=== PATIENT | male | born 1990 | race Caucasian/White ===

== ENCOUNTER 2022-02-17 12:11 | Emergency (ER) | payer MEDICAID ==
[2022-02-17] MEDS ORDERED: Ketorolac 30 MG/ML SDV IVPUSH ONE (13:02)
[2022-02-17] MEDS ORDERED: HYDROmorphone 1 MG/ML Syringe IVPUSH ONE ×2 (13:04→14:10)
[2022-02-17] MEDS ORDERED: methylPREDNISolone Sodium Succinate 125 MG/2 ML SDV IVPUSH ONE (13:05)
[2022-02-17] MEDS ORDERED: Methocarbamol 500 MG Tab PO ONE (13:06)
== END 2022-02-17 14:35 | disposition home or self-care (01) ==
LOC: KA.ED 12:11
DX: M54.42 Lumbago with sciatica, left side (principal); F17.210 Nicotine dependence, cigarettes, uncomplicated; Z79.899 Other long term (current) drug therapy; Z79.82 Long term (current) use of aspirin; Z98.1 Arthrodesis status
CPT/HCPCS: 72020; 72110; 96374; 96375; 96376; 99283; 99283-25; A9270-GY; J1170; J1885; J2930